=== PATIENT | male | born 1985 ===

== ENCOUNTER 2018-04-06 07:29 | Outpatient (CLI) | payer OTHER ==
--- NOTE | 2018-04-06 10:21 | ULT ---
ABDOMINAL ULTRASOUND: 04/06/2018 HISTORY: Elevated liver function tests. FINDINGS: There is a round, echogenic mass seen within the peripheral aspect of the right hepatic lobe, measuri ng approximately 1.6 cm. This may potentially represent a hemangioma. No other hepatic masses are s een. The liver is not enlarged. The right kidney measures 12.1 cm in length. There is a small, echogenic focus at the inferior pole left kidney, measuring 0.4 cm. There is no posterior shadowing present. This could represent a very tiny angiomyolipoma versus a prominent vessel. The right kidney otherwise has a normal sonographic appearance. The left kidney demonstrates a normal sonographic appearance, measuring 12.5 cm in lengt h. The limited visualized portions of the pancreas, the visualized portions of the IVC, the abdominal ao rta, the gallbladder, and the spleen demonstrate a normal sonographic appearance. IMPRESSION: 1. Echogenic mass within the right hepatic lobe, which may represent a hemangioma; however, confirma tion with CT scan versus MRI abdomen is recommended for further evaluation. 2. Difficult to characterize, subcentimeter, echogenic focus, inferior pole, left renal cortex. Thi s could potentially represent a tiny angiomyolipoma. This can also be further evaluated on additiona l imaging study. 3. No gallbladder calculi are seen. The common duct is normal in caliber, measuring 0.[address] POS: [facility]
== END 2018-04-06 07:30 | disposition home or self-care (01) ==
LOC: BICULT 07:29
PROVIDERS: ATTEND Family Medicine
DX: R74.8 Abnormal levels of other serum enzymes (principal); R89.9 Unspecified abnormal finding in specimens from other organs, systems and tissues; R16.0 Hepatomegaly, not elsewhere classified
CPT/HCPCS: 76700